=== PATIENT | male | born 1975 | race Caucasian/White ===

== ENCOUNTER 2018-03-13 22:27 | Emergency (ER) | payer OTHER ==
[~2018-03-13] VITALS: Ht 175.3 cm; Wt 104.3 kg
[2018-03-13 23:05] VITALS: BP 156/106
[2018-03-13 23:20] LABS: BILIRUBIN,URINE NEGATIVE (NEGATIVE); UROBILINOGEN,URINE NORMAL (NEGATIVE)
[2018-03-13 23:21] LABS: APPEARANCE,URINE CLEAR (CLEAR); UA COLOR YELLOW (YELLOW)
--- NOTE | 2018-03-13 23:21 | ER.PDOC ---
General Chief Complaint: Abdomen Pain Stated Complaint: ABD PAIN Time seen by MD: 23:14 Source: patient, family Exam Limitations: no limitations History of Present Illness Initial Comments about 2 hours ago patient stopped in [place] and got food. Shortly after eating patient began to have epigastric pain that has worsened and worsened. Patient has a history of gastric sleeve. Timing/Duration: 1-3 hours Context: bad food Severity/Quality: severe, cramping, fullness, sharpness Radiation: chest Associated Symptoms: fever/chills, nausea/vomiting (without vomiting) Exacerbated by: movements Relieved By: nothing Allergies: Coded Allergies: NSAIDS (Non-Steroidal Anti-Inflamma (Unverified Allergy, Unknown, 03/13/18 ) NO NSAIDS DUE TO GASTRIC SLEEVE Vital Signs First Vital Signs Date Time Temp Pulse Resp B/P (MAP) Pulse Ox O2 Delivery O2 Flow Rate FiO2 03/13/18 22:57 98.5 62 20 100 Room Air 98.5 03/13/18 23:05 156/106 (123) Last Vital Signs Date Time Temp Pulse Resp B/P (MAP) Pulse Ox O2 Delivery O2 Flow Rate FiO2 03/13/18 23:05 98.5 62 20 156/106 (123) 100 Room Air 98.5 Past Medical History Medical History: no pertinent history Surgical History: gastric bypass, other Social History Smoking: non-smoker Alcohol Use: rarely Drug Use: none Reviewed Nursing Reviewed: Vital Signs, Abn. Noted (hypertensive), Nursing Assessment Constitutional: chills EENTM: no symptoms reported Respiratory: no symptoms reported Cardiovascular: chest pain Gastrointestinal: abdomen distended, abdominal pain, nausea Genitourinary: no symptoms reported Musculoskeletal: no symptoms reported Skin: no symptoms reported Psychiatric/Neurological: no symptoms reported Endocrine: no symptoms reported Hematologic/Lymphatic: no symptoms reported All Other Systems: Reviewed and Negative Physical Exam General Appearance: No Apparent Distress, WD/WN, Obese HEENT: PERRL/EOMI, Normal ENT Inspection, TMs Normal, Pharynx Normal Neck: Non-Tender, Full Range of Motion, Supple, Normal Inspection Respiratory: chest non-tender, lungs clear, normal breath sounds, no respiratory distress, no accessory muscle use Cardiovascular: Normal Peripheral Pulses, Regular Rate, Rhythm, No Edema, No Gallop, No JVD, No Murmur Gastrointestinal: Normal Bowel Sounds, Soft, Guarding, Rebound, Tenderness (RLQ , and Epigastric), McBurneys point tender Back: Normal Inspection, No CVA Tenderness, No Vertebral Tenderness Extremities: Normal Range of Motion, Non-Tender, Normal Inspection, No Pedal Edema, No Calf Tenderness, Normal Capillary Refill, Pelvis Stable Neurologic/Psychiatric: paralegal specialist II-XII NML as Tested, No Motor/Sensory Deficits, Alert, Normal Mood/Affect, Oriented x 3 Skin: Normal Color, Warm/Dry Lymphatic: No Adenopathy Progress Progress Patient feeling better, continues with some pain, however improved EKG/XRAY/CT/US EKG: NSR, no ST T wave changes CT Comments: Gastric Bypass Surgery, NAD Course Vitals & review Data Vital Sign - Last 24 Hours 03/13/18 03/13/18 03/13/18 22:57 22:57 23:05 Temp 98.5 98.5 98.5 98.5 98.5 98.5 Pulse 62 62 62 Resp 20 20 20 B/P (MAP) 156/106 (123) Pulse Ox 100 100 O2 Delivery Room Air Room Air Departure Time of Disposition: 00:56 Disposition: 01 HOME, SELF-CARE Impression: Primary Impression: Gastritis Additional Impression: Abnormal CT scan, sigmoid colon Condition: Improved Patient Instructions: Gastritis, Adult Referrals: PCP,UNKNOWN (PCP) PRIMARY CARE PROVIDER Additional Instructions: Important to follow up with PCP. Colonoscopy recommended Duration or Time Spent with Pa: 45 Problem Qualifiers Primary Impression: Gastritis Gastritis type: unspecified gastritis Chronicity: acute Gastritis bleeding : without bleeding Qualified Codes: K29.00 - Acute gastritis without bleeding JACOB HECK DO Mar 13, 2018 23:21
[2018-03-13] MEDS ORDERED: ZOFRAN IV STA (23:23)
[2018-03-13] MEDS ORDERED: MORPHINE SULFATE IV STA (23:23)
[2018-03-13] MEDS ORDERED: NS 1000ML 1,000 ML STA (23:23)
--- NOTE | 2018-03-13 23:32 | PCM.EKG ---
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
[2018-03-13 23:38] LABS: BASOPHIL % 0.3 % (0.0-0.2); EOSINOPHIL # 0.2 10^3/uL (0.0-0.2); LYMPHOCYTES # 2.2 10^3/uL (1.0-4.8); LYMPHOCYTES % 20.4 % (24.0-44.0); MEAN CELL HGB 28.7 pg (26-34); MEAN CELL HGB CONCENTRATION 32.4 g/dL (33-37); MEAN CORP VOLUME 88.7 fL (78-100); MEAN PLATELET VOLUME 9.3 fL (7.8-11.0); NEUTROPHIL # 7.5 10^3/uL (1.8-7.7); NEUTROPHILS % 68.1 % (41.0-85.0); RED CELL DISTRIBUTION WIDTH 14.6 % (11.5-14.5); WHITE BLOOD CELL 10.9 10^3/uL (4.5-11.0)
--- NOTE | 2018-03-13 23:49 | NUR ---
CT PT TO CT WITH CONNER CUMMINGS AT THIS TIME.
[2018-03-13] MEDS ORDERED: NS 1000ML 1,000 ML ONE (23:56)
[2018-03-13] MEDS ORDERED: ZOFRAN ONE (23:56)
--- NOTE | 2018-03-13 23:56 | NUR ---
ROOM PT BACK TO ROOM FROM CT AT THIS TIME.
[2018-03-13] MEDS ORDERED: MORPHINE SULFATE ONE (23:57)
[2018-03-14] LABS: ALANINE AMINOTRANSFERASE(ML) 29 U/L (12-78); ALKALINE PHOSPHATASE 89 U/L (50-136); ASPARTATE AMINO TRANSFERASE 19 U/L (0-35); CARBON DIOXIDE 27.8 mmol/L (20.0-32); GLUCOSE 121 mg/dL (70-110)
[2018-03-14 00:05] LABS: CALCIUM 9.4 mg/dL (8.4-10.5)
--- NOTE | 2018-03-14 00:10 | DIREP ---
PROCEDURE:CT ABDOMEN/PELVIS W/ CONTRAST COMPARISON:None. INDICATIONS:abdominal pain TECHNIQUE: Axial images were obtained through the abdomen and pelvis with the administration of IV contrast. Oral contrast was not administered. The examination is supplemented with sagittal and coronal reconstructions. FINDINGS: LOWER CHEST: The lung bases appear clear of focal consolidation. No evidence of pleural effusion. LIVER: A focal lesion is not detected. BILIARY: Punctate calcification along the dependent posterior wall. PANCREAS: No lesion, inflammatory changes, fluid collection, ductal dilatation, or atrophy. SPLEEN: No enlargement. No focal lesion. KIDNEYS: No mass. No calcification. No obstruction. ADRENALS: No mass or enlargement. AORTA/VASCULAR: No aneurysm or dissection. RETROPERITONEUM: No mass or adenopathy. BOWEL/MESENTERY: Limitations due to unopacified bowel. Gastric surgery changes. The appendix is visualized and has a normal appearance. There is circumferential wall thickening of the rectum. No small bowel dilatation or bowel wall thickening. No mesenteric inflammatory changes. There is no free air or free fluid. ABDOMINAL WALL: No mass or hernia. PELVIS: No visible mass. No adenopathy. Evaluation of the urinary bladder is limited due to an empty bladder. BONES: Left L5 spondylolysis. OTHER: Negative. CONCLUSION: 1. An acute intra-abdominal abnormality is not demonstrated. 2. There is circumferential wall thickening of the rectum. Recommend colonoscopy. Dictated by: Parth Jimenes M.D. On 03/14/2018 at 00:01 AM
[2018-03-14] MEDS ORDERED: PROTONIX IV IV STA (00:14)
[2018-03-14] MEDS ORDERED: PROTONIX IV IV ONE (00:31)
[2018-03-14 01:14] VITALS: BP 156/106
--- NOTE | 2018-03-14 01:15 | NUR ---
IV DC'D AT THIS TIME. CATHETER TIP INTACT.
== END 2018-03-14 01:13 | disposition home or self-care (01) ==
LOC: ER 22:27
DX: K29.00 Acute gastritis without bleeding (principal); Z98.84 Bariatric surgery status
CPT/HCPCS: 36415; 74177; 80053; 81002; 82150; 82550; 83690; 84484; 85025; 85610; 85730; 86677; 93005; 96361; 96374; 96375; 99284; C9113; J2270; J2405; J7030; Q9965